=== PATIENT | male | born 1955 | race Caucasian/White ===

== ENCOUNTER → 2019-01-17 08:39 | Outpatient (POV) | payer OTHER, SELFPAY | PROVIDERS: Visit Provider Dermatology | DX: Z00.00 Encounter for general adult medical examination without abnormal findings (principal) ==

== ENCOUNTER 2019-12-23 18:47 | Inpatient (IN) ==
--- NOTE | 2019-12-23 19:37 | Emergency Department Note ---
[facility] [place] Clinical Impression: Abdominal pain Qualifiers: Abdominal location: epigastric Qualified Code(s): R10.13 - Epigastric pain Disposition: Still a Patient Condition on Discharge: Good Referrals: Darrell Cotton MD [Primary Care Provider] - Time of Disposition: 19:43 Medical Decision Making - All Inquiry Pt receiving controlled substance: No Vital Signs: 12/23/19 19:29 Temperature 98.3 F Temperature Source Oral Pulse Rate [Right Brachial] 111 H Respiratory Rate 20 Blood Pressure [Right Arm] 112/80 Blood Pressure Mean [Right Arm] 90 Blood Pressure Source [Right Arm] Automatic Cuff Blood Pressure Position [Right Arm] Sitting 02 Sat by Pulse Oximetry 96 Oxygen Delivery Method Room Air [facility] [place] - General Chief complaint: [facility] Stated complaint: Vomiting, stomach pain, muscle spasms Time Seen by Provider: 12/23/19 19:39 Mode of Arrival: Ambulatory Source of Information: Patient Limitations: No Limitations Description of Symptoms (Recalled from Triage Doc. by RN): PATIENT C/O VOMITING AND MIDDLE ABDOMINAL PAIN SINCE APPROX 0500 THIS AM. THE ABDOMINAL PAIN IS WORSE WHEN HE LIES DOWN. PATIENT STATES THAT HE CANNOT HOLD EVEN WATER DOWN. DENIES DIARRHEA, STATING HE HAD A HARD BOWEL MOVEMENT THIS AM HEENT Symptoms (Recalled from RN notes): No Resp Symptoms (Recalled from RN notes): No Skin Symptoms (Recalled from RN notes): No MS Symptoms (Recalled from RN notes): No Functional Status (Recalled from RN notes): WNL - History of Present Illness Provider Complaint: 64 yr old male presents for abd pain,nausea and vomiting since 5 am. Pt states he has been vomiting up dark brown stuff and some with food she ate last night. Pt states when he belches it taste and smells like stool. - Related Data Home Medications Medication Instructions Recorded Confirmed Atorvastatin Calcium [Atorvastatin 20 mg PO HS 12/23/19 12/23/19 20mg Tab] lisinopriL [Lisinopril 40mg Tablet] 40 mg PO DAILY 12/23/19 12/23/19 Allergies Allergy/AdvReac Type Severity Reaction Status Date / Time No Known Allergies Allergy Verified 12/23/19 19:35 - Worker's Comp Is this a Worker's Comp case?: No [facility] History - Hepatitis A Screen Drug use history?: No High risk sexual behaviors?: No History of sexually transmitted infection?: No Currently employed?: No Childcare worker?: No Do you have indoor plumbing?: Yes Do you have electricity?: Yes Attestation statement:: This patient has been screened for Hepatitis A risk factors. I have reviewed the patient's past medical history: Yes - Social History Alcohol Intake: never Occupational Status: other ROS Obtained: Yes Systems reviewed as appropriate & no additional complaints - Constitutional Constitutional: Reports system reviewed and no additional complaints, except as docu, Denies chills, Denies fever(s) - Eyes Eyes: Reports system reviewed and no additional complaints, except as docu, Denies change in vision - ENT Ears, Nose, Mouth, and Throat: Reports system reviewed and no additional complaints, except as docu, Denies nasal discharge - Cardiovascular Cardiovascular: Reports system reviewed and no additional complaints, except as docu, Denies chest pain at rest - Respiratory Respiratory: Yes system reviewed and no additional complaints, except as docu, No chest congestion - Gastrointestinal Gastrointestingal: Reports: system reviewed and no additional complaints, except as docu, abdominal pain, belching, nausea, vomiting - Musculoskeletal Musculoskeletal: Reports system reviewed and no additional complaints, except as docu, Denies decreased muscle mass - Integumentary/Breasts Skin/Breast: Reports system reviewed and no additional complaints, except as docu, Denies rash - Neurologic Neurologic: Reports system reviewed and no additional complaints, except as docu, Denies focal weakness - Endocrine Endocrine: Reports system reviewed and no additional complaints, except as docu, Denies cold intolerance - Hematologic/Lymphatic Henatologic/Lymphatic: Reports system reviewed and no additional complaints, except as docu, Denies lymphadenopathy - Allergic/Immunologic Allergic/Immunologic: Reports system reviewed and no additional complaints, except as docu, Denies itchy eyes Physical Exam - General General appearance: alert, in no apparent distress - Head Head exam: atraumatic, normocephalic, normal inspection - Eye Eye exam: Present: normal appearance, PERRL - ENT ENT exam: Present: normal exam, normal oropharynx, mucous membranes moist, TM's normal bilaterally, normal external ear exam - Neck Neck exam: Present: normal inspection, full ROM, trachea midline. Absent: meningismus, lymphadenopathy - Chest Chest inspection: Present: normal inspection, symmetric chest wall rise. Absent: tenderness - Respiratory Respiratory exam: Present: normal lung sounds bilaterally. Absent: respiratory distress - Cardiovascular Cardiovascular exam: Present: regular rate, normal rhythm. Absent: JVD - Abdominal Exam Abdominal exam: Present: tenderness, hyperactive bowel sounds Abdominal tenderness: Present: epigastrium - Extremities Exam Extremities exam: Present: normal inspection, full ROM, normal capillary refill. Absent: calf tenderness - Back Exam Back exam: Present: normal inspection. Absent: tenderness - Neurological Exam Neurological exam: Present: alert, oriented X3 - Psychiatric Psychiatric exam: Present: normal affect, normal mood - Skin Skin exam: Present: warm, dry, intact, normal color - Lymphatic Lymphatic Findings: no adenopathy
[2019-12-23 20:32] LABS: Microscopic, Urine URINE MICROSCOPIC (MICROSCOPIC)
[2019-12-23 20:36] LABS: Basophils % 0.1 % (0.1-2.0); Eosinophils % 0.3 % (0.1-12.0); Hematocrit 49.4 % (42.0-52.0); Hemoglobin 16.2 g/dL (14.1-18.0); Lymphocytes # 0.8 K/mm3 (0.7-4.5); Lymphocytes % 5.6 % (10-50); Mean Corpuscular HGB Conc 32.8 g/dL (31.8-35.4); Mean Corpuscular Volume 97.7 fl (80-94); Mean Platelet Volume 8.4 fl (7.4-10.4); Monocytes # 0.5 K/mm3 (0.1-1.0); Monocytes % 3.1 % (1.7-9.3); Neutrophils # 13.6 K/mm3 (1.8-7.8); Neutrophils % 90.9 % (37.0-80.0); Platelet Count 270 K/mm3 (142-424); Red Blood Count 5.05 M/mm3 (4.60-6.20); Red Cell Distribution Width 12.1 % (11.5-17.5)
[2019-12-23 21:10] LABS: Alanine Aminotransferase 62 U/L (12-78); Albumin Level 4.4 gm/dL (3.4-5.0); Albumin/Globulin Ratio 1.2 (1.1-1.8); Alkaline Phosphatase 60 U/L (46-116); Amylase 62 U/L (25-115); Aspartate Amino Transferase 42 U/L (15-37); Blood Urea Nitrogen 28 mg/dL (7-18); Calcium 9.4 mg/dL (8.5-10.1); Carbon Dioxide 24 mmol/L (21.0-32.0); Chloride 101 mmol/L (98-107); Globulin 3.6 gm/dl (1.3-3.2); Glucose 174 mg/dL (74-106); Sodium 138 mmol/L (136-145)
[2019-12-23 21:13] LABS: C-Reactive Protein < 0.2 mg/dL (0.0-0.9)
[2019-12-23 21:18] LABS: Appearance,Urine SL CLOUDY (Clear); Bilirubin,Urine Negative (Negative); Blood, Urine Negative (Negative); Color,Urine YELLOW (Yellow); Glucose,Urine (UA) Negative (Negative); Ketones,Urine 1+ (Negative); Leukocyte Esterase,Urine Negative (Negative); PH,Urine 7.5 (5.0-8.5); Protein,Urine Negative (Negative); Urobilinogen,Urine 0.2 EU/dl (0.2)
[2019-12-23 21:21] LABS: Amorphous Sediment,Urine 4+ /lpf
[2019-12-23 21:30] LABS: Erythrocyte Sedimentation Rate 1 mm/hr (0-20)
[2019-12-23 21:40] LABS: Eosinophils % 1 % (0-3); Lymphocytes % 4 % (10-50); Monocytes % 2 % (2-9); Neutrophils % 85 % (42-76); RBC Morphology Normal; Total Cells Counted 100
[2019-12-24 07:09] LABS: Basophils % 0.3 % (0.1-2.0); Eosinophils # 0.1 K/mm3 (0.0-0.4); Eosinophils % 0.7 % (0.1-12.0); Hematocrit 43.5 % (42.0-52.0); Lymphocytes # 1.8 K/mm3 (0.7-4.5); Lymphocytes % 19.7 % (10-50); Mean Corpuscular HGB Conc 31.7 g/dL (31.8-35.4); Mean Corpuscular Volume 99.1 fl (80-94); Mean Platelet Volume 8.2 fl (7.4-10.4); Monocytes # 0.6 K/mm3 (0.1-1.0); Monocytes % 6.6 % (1.7-9.3); Neutrophils # 6.5 K/mm3 (1.8-7.8); Neutrophils % 72.7 % (37.0-80.0); Platelet Count 227 K/mm3 (142-424); Red Blood Count 4.39 M/mm3 (4.60-6.20); Red Cell Distribution Width 12.1 % (11.5-17.5); White Blood Count 8.9 K/mm3 (4.8-10.8)
[2019-12-24 07:12] LABS: Hemoglobin 13.8 g/dL (14.1-18.0)
[2019-12-24 07:20] LABS: Anion Gap 12.4 mEq/L (5-15)
[2019-12-24 07:21] LABS: Calcium 8.3 mg/dL (8.5-10.1)
--- NOTE | 2019-12-24 08:23 | Pharmacy Consult Notes ---
[facility] Pharmacy VTE Monitoring - Patient Demographics Admission date: 12/23/19 Report Date: 12/24/19 Time: 08:23 Allergies/Adverse Reactions: Patient Allergies No Known Allergies Allergy (Verified 12/23/19 19:35) Height: 1.83 m Weight: 100.726 kg Patient Problems: Current Active Problems Abdominal pain (Acute) - VTE Risk Labs: VTE Related Lab Results Hgb 13.8 g/dL (14.1-18.0) L D 12/24/19 06:13 Hct 43.5 % (42.0-52.0) 12/24/19 06:13 Plt Count 227 K/mm3 (142-424) 12/24/19 06:13 BUN 26 mg/dL (7-18) H 12/24/19 06:13 Creatinine 1.17 mg/dL (0.70-1.30) 12/24/19 06:13 Estimated Creat Clear 90 mL/min (50-200) 12/24/19 06:13 VTE Score: 1 - Prophylaxis VTE Prophylaxis Ordered?: Yes Types of VTE Prophylaxis: TEDS Knee High Location of Applied Device: Bilateral Lower Extremeties - VTE Diagnosis Confirmed Treatment or plan recommended: Continue Current Treatment
--- NOTE | 2019-12-24 08:47 | Consult Report ---
*Admission Date: 12/23/19 *Reason for consult:: Abdominal pain. Small bowel obstruction. *History of present illness: Mr. Ordonez is a 64-year-old male that presented to [facility] with persistent nausea and vomiting. Onset and persistence for approximately 24 hours prior to arrival. Reports a relatively large meal past 36 hours. No fever or chills. No diarrhea No hematochezia or melena. No prior episodes and no sick contacts. Decision to proceed to Urgent Treatment Center based on per sistence of nausea and inability to complete oral intake. Mr. Ordonez reports an intentional 70+ pound weight loss over the past year. CT imaging completed. Findings suspicious for partial small bowel obstruction. Patient admitted. Surgical consultation requested. Mildly elevated WBC noted. Review of Systems - Review of Systems Review of systems:: pertinent systems reviewed and negative unless documented below - Constitutional Reports weight loss Comments: Weight loss intentional. - *Neurologic Denies localized weakness [facility] History Medical History: Reports:: Hyperlipidemia, Hypertension Denies:: Cancer, Diabetes Mellitus Type 1, Diabetes Mellitus Type 2, MRSA *Have you ever received a pneumonia vaccine?: Yes *Have you received a flu vaccine this season?: Yes Other Surgeries: Yes: EGD Amputation: No Fractures: No - *Social History Educational Level: Completed High School Smoking Status: Former smoker Tobacco Type: cigarettes # Packs/Day (cigarettes): 2 Alcohol Intake: never *Occupational Status:: retired *Travel in the last 8 weeks: None Family Hx:: Diabetes, Heart Attack, Hyperlipidemia, Hypertension, Stroke, Tuberculosis Meds Home Medications Medication Instructions Recorded Confirmed Type Atorvastatin Calcium [Atorvastatin 20 mg PO HS 12/23/19 12/24/19 History 20mg Tab] lisinopriL [Lisinopril 40mg Tablet] 40 mg PO DAILY 12/23/19 12/24/19 History Aspirin [Aspirin 81mg EC Tab] 81 mg PO DAILY 12/24/19 12/24/19 History Allergies Allergy/AdvReac Type Severity Reaction Status Date / Time No Known Allergies Allergy Verified 12/23/19 19:35 Exam Vital signs and Labs for Last 24 Hours: Temp Pulse Resp BP Pulse Ox 98.5 F 78 16 123/61 96 12/24/19 07:54 12/24/19 07:54 12/24/19 07:54 12/24/19 07:54 12/24/19 07:54 Laboratory Results - last 24 hr 12/23/19 20:22: WBC 15.0 H, RBC 5.05, Hgb 16.2, Hct 49.4, MCV 97.7 H, MCH 32.0 H , MCHC 32.8, RDW 12.1, Plt Count 270, MPV 8.4, Neut % (Auto) 90.9 H, Lymph % (Auto) 5.6 L, Bradley % (Auto) 3.1, Eos % (Auto) 0.3, Baso % (Auto) 0.1, Neut # (Auto) 13.6 H, Lymph # (Auto) 0.8, Bradley # (Auto) 0.5, Eos # (Auto) 0.0, Baso # (Auto) 0.0, Total Counted 100, Neutrophils % (Manual) 85 H, Band Neutrophils % 8.0, Lymphocytes % (Manual) 4 L, Monocytes % (Manual) 2, Eosinophils % (Manual) 1, Platelet Estimate Normal, RBC Morphology Normal, ESR 1 12/23/19 20:22: Sodium 138, Potassium 4.0, Chloride 101, Carbon Dioxide 24, Anion Gap 17.0 H, BUN 28 H, Creatinine 1.46 H, Estimated Creat Clear 71, Estimated GFR 48 L, Est GFR ( Amer) 59, Glucose 174 H, Calcium 9.4, Total Bilirubin 1.0, AST 42 H, ALT 62, Alkaline Phosphatase 60, C-Reactive Protein < 0.2, Total Protein 8.0, Albumin 4.4, Globulin 3.6 H, Albumin/Globulin Ratio 1.2, Amylase 62, Lipase 162 12/23/19 20:25: Urine Color Yellow, Urine Appearance Sl cloudy, Urine pH 7.5, Ur Specific [place] 1.020, Urine Protein Negative, Urine Glucose (UA) Negative, Urine Ketones 1+, Urine Blood Negative, Urine Nitrate Negative, Urine Bilirubin Negative, Urine Urobilinogen 0.2, Ur Leukocyte Esterase Negative, Amorphous Sediment 4+ 12/24/19 06:13: WBC 8.9 D, RBC 4.39 L, Hgb 13.8 L D, Hct 43.5, MCV 99.1 H, MCH 31.5 H, MCHC 31.7 L, RDW 12.1, Plt Count 227, MPV 8.2, Neut % (Auto) 72.7, Lymph % (Auto) 19.7, Bradley % (Auto) 6.6, Eos % (Auto) 0.7, Baso % (Auto) 0.3, Neut # (Auto) 6.5, Lymph # (Auto) 1.8, Bradley # (Auto) 0.6, Eos # (Auto) 0.1, Baso # (Auto) 0.0 12/24/19 06:13: Sodium 141, Potassium 4.4, Chloride 106, Carbon Dioxide 27, Anion Gap 12.4, BUN 26 H, Creatinine 1.17, Estimated Creat Clear 90, Estimated GFR 63, Est GFR ( Amer) 76 D, Glucose 101 D, Calcium 8.3 L D I & O for Last 24 hours: Intake & Output 12/21/19 12/22/19 12/23/19 12/24/19 11:59 11:59 11:59 11:59 Intake Total 541 / 541 Output Total 75 / 75 Balance 466 / 466 Weight 100.726 kg - Constitutional Comments: No distress. Nontoxic. - *Routine Respiratory Exam Comments: Chest clear bilaterally. - *Routine Cardiovascular Exam Comments: Regular rate and rhythm. - *Routine Abdominal Exam Comments: Soft. Nontender. Nondistended. Results - Labs 12/24/19 06:13 12/24/19 06:13 Laboratory Results - last 24 hr 12/23/19 20:22: WBC 15.0 H, RBC 5.05, Hgb 16.2, Hct 49.4, MCV 97.7 H, MCH 32.0 H , MCHC 32.8, RDW 12.1, Plt Count 270, MPV 8.4, Neut % (Auto) 90.9 H, Lymph % (Auto) 5.6 L, Bradley % (Auto) 3.1, Eos % (Auto) 0.3, Baso % (Auto) 0.1, Neut # (Auto) 13.6 H, Lymph # (Auto) 0.8, Bradley # (Auto) 0.5, Eos # (Auto) 0.0, Baso # (Auto) 0.0, Total Counted 100, Neutrophils % (Manual) 85 H, Band Neutrophils % 8.0, Lymphocytes % (Manual) 4 L, Monocytes % (Manual) 2, Eosinophils % (Manual) 1, Platelet Estimate Normal, RBC Morphology Normal, ESR 1 12/23/19 20:22: Sodium 138, Potassium 4.0, Chloride 101, Carbon Dioxide 24, Anion Gap 17.0 H, BUN 28 H, Creatinine 1.46 H, Estimated Creat Clear 71, Estimated GFR 48 L, Est GFR ( Amer) 59, Glucose 174 H, Calcium 9.4, Total Bilirubin 1.0, AST 42 H, ALT 62, Alkaline Phosphatase 60, C-Reactive Protein < 0.2, Total Protein 8.0, Albumin 4.4, Globulin 3.6 H, Albumin/Globulin Ratio 1.2, Amylase 62, Lipase 162 12/23/19 20:25: Urine Color Yellow, Urine Appearance Sl cloudy, Urine pH 7.5, Ur Specific [place] 1.020, Urine Protein Negative, Urine Glucose (UA) Negative, Urine Ketones 1+, Urine Blood Negative, Urine Nitrate Negative, Urine Bilirubin Negative, Urine Urobilinogen 0.2, Ur Leukocyte Esterase Negative, Amorphous Sediment 4+ 12/24/19 06:13: WBC 8.9 D, RBC 4.39 L, Hgb 13.8 L D, Hct 43.5, MCV 99.1 H, MCH 31.5 H, MCHC 31.7 L, RDW 12.1, Plt Count 227, MPV 8.2, Neut % (Auto) 72.7, Lymph % (Auto) 19.7, Bradley % (Auto) 6.6, Eos % (Auto) 0.7, Baso % (Auto) 0.3, Neut # (Auto) 6.5, Lymph # (Auto) 1.8, Bradley # (Auto) 0.6, Eos # (Auto) 0.1, Baso # (Auto) 0.0 12/24/19 06:13: Sodium 141, Potassium 4.4, Chloride 106, Carbon Dioxide 27, Anion Gap 12.4, BUN 26 H, Creatinine 1.17, Estimated Creat Clear 90, Estimated GFR 63, Est GFR ( Amer) 76 D, Glucose 101 D, Calcium 8.3 L D - Imaging CT scan - abdomen: image reviewed CT scan - chest: image reviewed Assessment and Plan - Assessment and plan all Dx Assessment and Plan for all problems:: 1. Partial small bowel obstruction. Presents with nausea and emesis. Mildly elevated WBC. Admitted. NG tube placed. Minimal decompression needed. Symptoms have essentially resolved. NG tube removed today. Clinical abdominal examination without abnormality. Patient has not had prior abdominal operation. Current event likely attributed to viral illness. At this time we will begin to initiate diet and advance slowly to full liquids today. No operative intervention indicated.
--- NOTE | 2019-12-24 08:58 | History & Physical Report ---
*Admission Date: 12/23/19 *Chief complaint: Vomiting, abdominal pain *History of present illness: Mr. Ordonez is a 64-year-old male that presented to [facility] with persistent nausea and vomiting. Onset and persistence for approximately 24 hours prior to arrival. Reports a relatively large meal past 36 hours. No fever or chills. No diarrhea No hematochezia or melena. No prior episodes and no sick contacts. Decision to proceed to Urgent Treatment Center based on persistence of nausea and inability to complete oral intake. Mr. Ordonez reports an intentional 70+ pound weight loss over the past year. CT imaging completed. Findings suspicious for partial small bowel obstruction. Patient admitted. Surgical consultation requested. Mildly elevated WBC noted. [facility] History I have reviewed the patient's past medical history: Yes Medical History: Reports:: Hyperlipidemia, Hypertension Denies:: Cancer, Diabetes Mellitus Type 1, Diabetes Mellitus Type 2, MRSA *Have you ever received a pneumonia vaccine?: Yes *Have you received a flu vaccine this season?: Yes Other Surgeries: Yes: EGD Amputation: No Fractures: No - *Social History Educational Level: Completed High School Smoking Status: Former smoker Tobacco Type: cigarettes # Packs/Day (cigarettes): 2 Alcohol Intake: never *Occupational Status:: retired *Travel in the last 8 weeks: None Family Hx:: Diabetes, Heart Attack, Hyperlipidemia, Hypertension, Stroke, Tuberculosis Review of Systems - Review of Systems Review of systems:: pertinent systems reviewed and negative unless documented below - *Neurologic Denies localized weakness Meds Home Medications Medication Instructions Recorded Confirmed Type Atorvastatin Calcium [Atorvastatin 20 mg PO HS 12/23/19 12/24/19 History 20mg Tab] lisinopriL [Lisinopril 40mg Tablet] 40 mg PO DAILY 12/23/19 12/24/19 History Aspirin [Aspirin 81mg EC Tab] 81 mg PO DAILY 12/24/19 12/24/19 History Allergies Allergy/AdvReac Type Severity Reaction Status Date / Time No Known Allergies Allergy Verified 12/23/19 19:35 Exam Vital signs and Labs for Last 24 Hours: Temp Pulse Resp BP Pulse Ox 98.5 F 78 16 123/61 96 12/24/19 07:54 12/24/19 07:54 12/24/19 07:54 12/24/19 07:54 12/24/19 07:54 Laboratory Results - last 24 hr 12/23/19 20:22: WBC 15.0 H, RBC 5.05, Hgb 16.2, Hct 49.4, MCV 97.7 H, MCH 32.0 H , MCHC 32.8, RDW 12.1, Plt Count 270, MPV 8.4, Neut % (Auto) 90.9 H, Lymph % (Auto) 5.6 L, [place] % (Auto) 3.1, Eos % (Auto) 0.3, Baso % (Auto) 0.1, Neut # (Auto) 13.6 H, Lymph # (Auto) 0.8, [place] # (Auto) 0.5, Eos # (Auto) 0.0, Baso # (Auto) 0.0, Total Counted 100, Neutrophils % (Manual) 85 H, Band Neutrophils % 8.0, Lymphocytes % (Manual) 4 L, Monocytes % (Manual) 2, Eosinophils % (Manual) 1, Platelet Estimate Normal, RBC Morphology Normal, ESR 1 12/23/19 20:22: Sodium 138, Potassium 4.0, Chloride 101, Carbon Dioxide 24, Anion Gap 17.0 H, BUN 28 H, Creatinine 1.46 H, Estimated Creat Clear 71, Estima marlo GFR 48 L, Est GFR ( Amer) 59, Glucose 174 H, Calcium 9.4, Total Bilirubin 1.0, AST 42 H, ALT 62, Alkaline Phosphatase 60, C-Reactive Protein < 0.2, Total Protein 8.0, Albumin 4.4, Globulin 3.6 H, Albumin/Globulin Ratio 1.2, Amylase 62, Lipase 162 12/23/19 20:25: Urine Color Yellow, Urine Appearance Sl cloudy, Urine pH 7.5, Ur Specific [place] 1.020, Urine Protein Negative, Urine Glucose (UA) Negative, Urine Ketones 1+, Urine Blood Negative, Urine Nitrate Negative, Urine Bilirubin Negative, Urine Urobilinogen 0.2, Ur Leukocyte Esterase Negative, Amorphous Sediment 4+ 12/24/19 06:13: WBC 8.9 D, RBC 4.39 L, Hgb 13.8 L D, Hct 43.5, MCV 99.1 H, MCH 31.5 H, MCHC 31.7 L, RDW 12.1, Plt Count 227, MPV 8.2, Neut % (Auto) 72.7, Lymph % (Auto) 19.7, [place] % (Auto) 6.6, Eos % (Auto) 0.7, Baso % (Auto) 0.3, Neut # (Auto) 6.5, Lymph # (Auto) 1.8, [place] # (Auto) 0.6, Eos # (Auto) 0.1, Baso # (Auto) 0.0 12/24/19 06:13: Sodium 141, Potassium 4.4, Chloride 106, Carbon Dioxide 27, Anion Gap 12.4, BUN 26 H, Creatinine 1.17, Estimated Creat Clear 90, Estimated GFR 63, Est GFR ( Amer) 76 D, Glucose 101 D, Calcium 8.3 L D I & O for Last 24 hours: Intake & Output 12/21/19 12/22/19 12/23/19 12/24/19 11:59 11:59 11:59 11:59 Intake Total 541 / 541 Output Total 75 / 75 Balance 466 / 466 Weight 222 lb 1 oz Narrative: Patient is pleasant, alert, states that he feels much better since admission and wants his tube out. He reports 2 episodes of fairly significant flatus production this morning. ENT exam clear, NG tube in right nostril. Lungs are clear. Heart rate regular. Abdomen soft and nontender, no edema or clubbing. Neurologic exam intact, no rash. Oropharynx otherwise clear. Assessment and Plan (1) Small bowel obstruction Current visit: Yes Status: Acute Category: Medical Code(s): K56.609 - Unspecified intestinal obstruction, unspecified as to partial versus complete obstruction Unclear etiology of obstruction, possibly viral, good symptomatic improvement. Labs improved. Surgical consultation reviewed and appreciated. DC NG tube. Advance diet. Probable discharge tomorrow unless further obstruction occurs.
--- NOTE | 2019-12-25 07:22 | Progress Note ---
Internal Medicine - PN: Subj *Date: 12/25/19 *Time: 07:22 Interval history: Patient has no complaints this morning. He tolerated full liquid diet. He admits to flatus but no bowel movement. He denies nausea, vomiting, abdominal distention with his diet Exam Vital signs and Labs for Last 24 Hours: Temp Pulse Resp BP Pulse Ox 97.7 F 58 L 18 120/58 L 96 12/25/19 04:00 12/25/19 04:00 12/25/19 04:00 12/25/19 04:00 12/25/19 04:00 I & O for Last 24 hours: Intake & Output 12/22/19 12/23/19 12/24/19 12/25/19 11:59 11:59 11:59 11:59 Intake Total 541 / 541 3150 / 3150 Output Total 75 / 75 3475 / 3475 Balance 466 / 466 -325 / -325 Weight 222 lb 1 oz 224 lb 9 oz Narrative: He looks well. Abdomen is soft, nontender, nondistended with active bowel sounds Assessment and Plan (1) Small bowel obstruction Current visit: Yes Status: Acute Category: Medical Code(s): K56.609 - Unspecified intestinal obstruction, unspecified as to partial versus complete obstruction - Assessment and plan all Dx Assessment and Plan for all problems:: Advance to regular diet this morning and if that is tolerated patient will be discharged home
--- NOTE | 2019-12-25 07:24 | Discharge Summary ---
General - General Admission date:: 12/24/19 Discharge date: 12/25/19 HPI HPI: Mr. Ordonez is a 64-year-old male that presented to [facility] with persistent nausea and vomiting. Onset and persistence for approximately 24 hours prior to arrival. Reports a relatively large meal past 36 hours. No fever or chills. No diarrhea No hematochezia or melena. No prior episodes and no sick contacts. Decision to proceed to Urgent Treatment Center based on persistence of nausea and inability to complete oral intake. Mr. Ordonez reports an intentional 70+ pound weight loss over the past year. CT imaging completed. Findings suspicious for partial small bowel obstruction. Patient admitted. Surgical consultation requested. Mildly elevated WBC noted. Hospital Course Hospital Course: Patient was admitted with NG tube. He responded well to conservative treatment and NG tube was able to be removed within 24 hours. Diet was advanced first to liquids and then full liquids which patient tolerated without difficulties. Patient continued to improve and on the morning of December 25 diet was advanced to regular diet. Once patient was tolerating regular diet he was discharged home. Patient will follow-up in the office later this week Objective Vital signs: Temp Pulse Resp BP Pulse Ox 97.7 F 58 L 18 120/58 L 96 12/25/19 04:00 12/25/19 04:00 12/25/19 04:00 12/25/19 04:00 12/25/19 04:00 no acute distress - *Routine Abdominal Exam Present: soft, normoactive bowel sounds. Absent: tenderness, distended, rebound DS: Diagnosis - Discharge Diagnosis (1) Small bowel obstruction Status: Resolved Discharge Plan - Patient Discharge Instructions ACTIVITY: Continue current activity DIET: continue same diet Patient Instructions: Acute Abdominal Pain, DI for Abdominal Pain-Adult - Follow up Plan Follow up with: Darrell Cotton MD [Primary Care Provider] - 12/29/19 Disposition: Home, Self-[facility] Medications: Home Medications Medication Instructions Recorded Confirmed Type Atorvastatin Calcium [Atorvastatin 20 mg PO HS 12/23/19 12/24/19 History 20mg Tab] lisinopriL [Lisinopril 40mg Tablet] 40 mg PO DAILY 12/23/19 12/24/19 History Aspirin [Aspirin 81mg EC Tab] 81 mg PO DAILY 12/24/19 12/24/19 History Prescriptions/Medication Reconciliation: Continued Atorvastatin Calcium [Atorvastatin 20mg Tab] 20 mg PO HS Aspirin [Aspirin 81mg EC Tab] 81 mg PO DAILY lisinopriL [Lisinopril 40mg Tablet] 40 mg PO DAILY - Problem Reconciliation Problems Reviewed?: Yes
== END 2019-12-25 09:25 | disposition home or self-care (01) | DRG 390 ==
LOC: ER 18:47 → UTC 18:47 → 2ND 23:26
PROVIDERS: ADMIT Emergency Medicine; ATTEND Family Medicine
CPT/HCPCS: 74177; 80048; 80053; 81001; 82150; 83690; 85007; 85025; 85651; 86140; 87040; 96365; 96375; 99285; J2405; Q9967

== ENCOUNTER → 2020-03-21 12:31 | Outpatient (CLI) | payer MEDICARE, OTHER, SELFPAY ==
[2020-03-21 12:38] LABS: Adenovirus F 40/41, stool Not Detected (NotDetected); Astrovirus Not Detected (NotDetected); Campylobacter Not Detected (NotDetected); Clostridium Difficile A/B, PCR Not Detected (NotDetected); Cryptosporidium Not Detected (NotDetected); Cyclospora Cayetanesis Not Detected (NotDetected); Entamoeba histolytica Not Detected (NotDetected); Enteroaggregative E coli Not Detected (NotDetected); Enteropathogenic E coli Not Detected (NotDetected); Enterotoxigenic E coli Not Detected (NotDetected); Giardia lamblia Not Detected (NotDetected); Norovirus Not Detected (NotDetected); Plesimonas Shigalloides, PCR Not Detected (NotDetected); Rotavirus A Not Detected (NotDetected); Salmonella, PCR Not Detected (NotDetected); Sapovirus Not Detected (NotDetected); Shiga-like toxin E coli Not Detected (NotDetected); Shigella Enterovasive E coli Not Detected (NotDetected); Vibrio Cholerae Not Detected (NotDetected); Vibrio, PCR Not Detected (NotDetected); Yersinia Entercolitica, PCR Not Detected (NotDetected)
== END ==
PROVIDERS: Visit Provider Family Medicine
DX: R19.7 Diarrhea, unspecified (principal)
CPT/HCPCS: 87506

== ENCOUNTER 2020-03-24 11:30 | Emergency (ER) | payer MEDICARE, OTHER, SELFPAY ==
[2020-03-24 11:32] VITALS: BP 134/69; PULSE 95; RESP 20; TEMP 36.3; O2SAT 96; BMI 31.1
--- NOTE | 2020-03-24 11:47 | CT_ITS ---
PROCEDURE: CT ABDOMEN PELVIS W CON CLINICAL INDICATION: abd pain Generalized abdominal pain with diarrhea and bloody stool COMPARISON: CT ABDOMEN PELVIS W CON from 12/23/2019 TECHNIQUE: IV Contrast: 75ML OPTIRAY 350 Oral Contrast none Axial images obtained with sagittal and coronal reformats. All CT scans at the facility use one or more dose reduction, viz: automated exposure control, ma/kV adjustment per patient size (including targeted exams where dose is matched to indication, i.e. head), or iterative reconstruction technique. FINDINGS: LOWER THORAX: Right hemidiaphragm is elevated with mild right basilar atelectasis. Coronary artery calcifications are present ABDOMEN & PELVIS: The liver, spleen, adrenal glands, the and pancreas have an unremarkable appearance. There is a 3 mm stone in the mid polar region of the right kidney. No hydronephrosis. No ureteral calculi. No evidence of appendicitis, intestinal obstruction, free air, or diverticulitis. There is diverticulosis of the sigmoid colon. There is mild colonic thickening of the transverse, descending, sigmoid colon, and rectal area. No evidence of appendicitis IMPRESSION: 1. Thickening of the transverse descending and sigmoid colon and rectosigmoid region. This may be due to nondistention or colitis. 2. Colonic diverticulosis. No definite evidence of diverticulitis. 3. Right nephrolithiasis. Dictated by: Jesus Ying MD 03/25/2020 09:25 Electronically signed by Jesus Ying MD in [place] 03/25/2020 09:25
[2020-03-24 12:05] LABS: Basophils # 0.2 K/mm3 (0-0.2); Basophils % 2.7 % (0.1-2.0); Eosinophils # 0.2 K/mm3 (0.0-0.4); Eosinophils % 3.1 % (0.1-12.0); Hematocrit 41.4 % (42.0-52.0); Hemoglobin 14.3 g/dL (14.1-18.0); Lymphocytes # 1.4 K/mm3 (0.7-4.5); Lymphocytes % 21.3 % (10-50); Mean Corpuscular HGB Conc 34.6 g/dL (31.8-35.4); Mean Corpuscular Volume 92.7 fl (80-94); Mean Platelet Volume 8.4 fl (7.4-10.4); Monocytes # 0.6 K/mm3 (0.1-1.0); Monocytes % 9.5 % (1.7-9.3); Neutrophils # 4.3 K/mm3 (1.8-7.8); Neutrophils % 63.4 % (37.0-80.0); Platelet Count 263 K/mm3 (142-424); Red Blood Count 4.47 M/mm3 (4.60-6.20); White Blood Count 6.8 K/mm3 (4.8-10.8)
[2020-03-24 12:09] LABS: Chloride 104 mmol/L (98-107); Potassium 4.3 mmoL/L (3.5-5.1); Sodium 134 mmol/L (136-145)
[2020-03-24 12:12] LABS: Alanine Aminotransferase 35 U/L (12-78); Albumin Level 3.7 g/dl (3.5-5.0); Albumin/Globulin Ratio 1.2 (1.1-1.8); Alkaline Phosphatase 44 U/L (38-126); Amylase 68 U/L (30-110); Anion Gap 11.3 mEq/L (5-15); Aspartate Amino Transferase 32 U/L (17-59); Bilirubin,Total 1.1 mg/dl (0.2-1.3); Blood Urea Nitrogen 20 mg/dl (9-20); Calcium 8.9 mg/dl (8.4-10.2); Carbon Dioxide 23 mmol/L (22.0-30.0); Creatinine Clearance Estimated 109 mL/min (50-200); Estimated Glomerular Filt Rate 85 ml/min (>60); GFR (African American) 102 ML/MIN (>60); Globulin 3.2 g/dL (1.3-3.2); Glucose 143 mg/dl (74-100); Lipase 75 U/L (23-300); Total Protein,Serum 6.9 g/dl (6.3-8.2)
--- NOTE | 2020-03-24 12:12 | HMH.EDGENADL ---
ED Disposition Clinical Impression: Gastroenteritis, Diverticulitis large intestine Disposition: Home, Self-Care Condition on Discharge: Good Instructions: DI for Diarrhea and Traveler's Diarrhea -- Adult, DI for Diarrhea and Traveler's Diarrhea -- Child, DI for Nausea -- Adult, DI for Nausea -- Child Prescriptions: Ciprofloxacin HCl [Cipro 500mg Tab] 500 mg PO BID 10 Days #20 tab Transmission Status: Pending to [facility] metroNIDAZOLE [Flagyl 500mg Tablet] 500 mg PO Q8H 10 Days #30 tab Transmission Status: Pending to [facility] Referrals: Darrell Cotton MD [Primary Care Provider] - - Critical Care Critical Care Time: No Attestation: On 03/24/20, the high probability of a clinically significant, sudden or life threatening deterioration of the following system(s) required my full and direct attention, intervention and personal management. The time I documented below is in addition to time spent performing reported procedures but includes the following listed in this critical care notation. Medical Decision Making - Medical Records Medical records reviewed: Yes: I reviewed the patient's medical records. - All Inquiry Pt receiving controlled substance: No Vital Signs: 03/24/20 11:32 Temperature 97.4 F L Temperature Source Oral Pulse Rate [Right] 95 H Respiratory Rate 20 Blood Pressure [Right Arm] 134/69 Blood Pressure Mean [Right Arm] 90 02 Sat by Pulse Oximetry 96 - Lab Data Lab results reviewed: Yes: I reviewed the patient's lab results. Lab Results 03/24/20 12:00: WBC 6.8, RBC 4.47 L, Hgb 14.3, Hct 41.4 L, MCV 92.7, MCH 32.0 H, MCHC 34.6, RDW 12.0, Plt Count 263, MPV 8.4, Neut % (Auto) 63.4, Lymph % (Auto) 21.3, Mills % (Auto) 9.5 H, Eos % (Auto) 3.1, Baso % (Auto) 2.7 H, Neut # (Auto) 4.3, Lymph # (Auto) 1.4, Mills # (Auto) 0.6, Eos # (Auto) 0.2, Baso # (Auto) 0.2 03/24/20 12:00: Sodium 134 L, Potassium 4.3, Chloride 104, Carbon Dioxide 23, Anion Gap 11.3, BUN 20, Creatinine 0.90, Estimated Creat Clear 109, Estimated GFR 85, Est GFR ( Amer) 102, Glucose 143 H, Calcium 8.9, Total Bilirubin 1.1, AST 32, ALT 35, Alkaline Phosphatase 44, Total Protein 6.9, Albumin 3.7, Globulin 3.2, Albumin/Globulin Ratio 1.2, Amylase 68, Lipase 75 Result diagrams: 03/24/20 12:00 03/24/20 12:00 Orders (Tests/Meds): ED MEDICATIONS Discontinued Medications Generic Name Dose Route Start Last Admin Trade Name Freq PRN Reason Stop Dose Admin Sodium Chloride 1,000 mls @ 999 mls/hr 03/24/20 12:00 03/24/20 12:02 Sod Chlor 0.9% 1000ml Bag IV 03/24/20 13:00 999 mls/hr .Q1H1M DAVID Administration Ioversol 75 ml 03/24/20 12:47 03/24/20 12:49 Rad-Optiray 350 100ml Vial IV 03/24/20 12:48 75 ml ONCE ONE Administration Protocol Ondansetron HCl 4 mg 03/24/20 11:48 03/24/20 12:03 Zofran 4mg/2ml Vial IV 03/24/20 11:49 4 mg ONCE ONE Administration Sodium Chloride 10 ml 03/24/20 12:47 03/24/20 12:49 Rad-Saline Flush 10ml Syringe IV 03/24/20 12:48 10 ml ONCE ONE Administration ORDERS Category Date Time Status CT abdomen pelvis w con Stat Cat Scan 03/24/20 11:47 Taken Occult Blood,Stool Stat Lab 03/24/20 11:47 Ordered Urinalysis and Microscopic Stat Lab 03/24/20 11:47 Ordered - CT Data CT Scan: Abdomen, Pelvis Time Received: 16:[address] Reviewed: Yes: I have reviewed the patient's CT results Preliminary Findings: Abnormal (Patient has mild inflammation about the diverticula so mild case of diverticulitis) General Adult HPI - General Chief complaint: Nausea/Vomiting/Diarrhea Stated complaint: diarrhea X6days,nausea,rectal bleeding Time Seen by Provider: 03/24/20 12:12 Mode of Arrival: Ambulatory Source of Information: Patient Limitations: No Limitations Description of Symptoms (Recalled from ER Triage Doc. by RN): C/O diarrhea x6 days with bloody stool that began this morning. Denies cough, fever soa. - History of Presen
[2020-03-24 13:54] VITALS: BP 123/65; PULSE 85; RESP 20; TEMP 36.8; O2SAT 98
== END 2020-03-24 13:55 | disposition home or self-care (01) ==
PROVIDERS: Emergency Provider Family Medicine; PCP Family Medicine
DX: K52.9 Noninfective gastroenteritis and colitis, unspecified (principal); K57.32 Diverticulitis of large intestine without perforation or abscess without bleeding; Z87.891 Personal history of nicotine dependence
CPT/HCPCS: 74177; 80053; 82150; 83690; 85025; 96365; 96375; 99283; J2405; Q9967

== ENCOUNTER → 2021-02-25 13:49 | Outpatient (CLI) | payer MEDICARE, OTHER, SELFPAY | PROVIDERS: PCP Family Medicine; Visit Provider Family Medicine | DX: G47.33 Obstructive sleep apnea (adult) (pediatric) (principal); I10 Essential (primary) hypertension; E66.9 Obesity, unspecified | CPT/HCPCS: G0399 ==

== ENCOUNTER 2021-02-28 15:14 | Emergency (ER) | payer MEDICARE, OTHER, SELFPAY ==
[2021-02-28 15:53] VITALS: BP 130/82; PULSE 72; RESP 14; TEMP 37; O2SAT 95; BMI 33.9
--- NOTE | 2021-02-28 15:54 | XR_ITS ---
PROCEDURE: XR CHEST 2V CLINICAL HISTORY: INJURY Posttraumatic pain COMPARISON: CR XR CHEST PORTABLE from 12/24/2019 CR XR RIBS LT 2V from 02/28/2021 FINDINGS: The cardiomediastinal silhouette and pulmonary vascularity are within normal limits. Right hemidiaphragm is elevated with right basilar atelectasis. There are nondisplaced fractures of the left 6th and 7th ribs as seen on the rib detail study. No evidence of pneumothorax. [place] screws are present in the right humeral head IMPRESSION: Nondisplaced left 6th and 7th rib fractures better seen on the rib detail images Elevated right hemidiaphragm with right basilar atelectasis. Dictated by: Jesus Ying MD 02/28/2021 17:37 Jesus Ying MD in [place] 02/28/2021 17:37
--- NOTE | 2021-02-28 16:05 | HMH.EDUTC ---
[facility] [place] Clinical Impression: Left rib fracture Qualifiers: Encounter type: initial encounter Rib fracture type: single rib Fracture type: closed Qualified Code(s): S22.32XA - Fracture of one rib, left side, initial encounter for closed fracture Contusion of rib on left side Qualifiers: Encounter type: initial encounter Qualified Code(s): S20.212A - Contusion of left front wall of thorax, initial encounter Disposition: Home, Self-Care Condition on Discharge: Good Instructions: DI for Rib Fracture, DI for Rib Contusion Additional Instructions: Use the incentive spirometer as directed. Usually people do it 10 times every hour while they are awake for the next 2 weeks. Take the ibuprofen for pain. Follow up with your primary care doctor. GO TO THE ER FOR ANY WORSENING SYMPTOMS OR CONCERNS, ESPECIALLY ANY TROUBLE BREATHING Referrals: Darrell Cotton MD [Primary Care Provider] - Time of Disposition: 17:02 Medical Decision Making - Medical Records Medical records reviewed: No: I reviewed the patient's medical records. - All Inquiry Pt receiving controlled substance: No Vital Signs: 02/28/21 15:53 02/28/21 17:09 Temperature 98.6 F 98.6 F Temperature Source Oral Oral Pulse Rate 72 Pulse Rate [Right Brachial] 72 Respiratory Rate 14 14 Blood Pressure 130/82 Blood Pressure [Right Arm] 130/82 Blood Pressure Mean [Right Arm] 98 Blood Pressure Source Automatic Cuff Blood Pressure Source [Right Arm] Automatic Cuff Blood Pressure Position Supine Blood Pressure Position [Right Arm] Supine 02 Sat by Pulse Oximetry 95 Oxygen Delivery Method Room Air Room Air [facility] [place] - General Stated complaint: ac 02/25/21 fell-possible broken rib Time Seen by Provider: 02/28/21 16:05 Mode of Arrival: Ambulatory Source of Information: Patient HEENT Symptoms (Recalled from RN notes): No Resp Symptoms (Recalled from RN notes): No Skin Symptoms (Recalled from RN notes): No MS Symptoms (Recalled from RN notes): Yes Functional Status (Recalled from RN notes): na - History of Present Illness Provider Complaint: He states that 3 days ago he was walking in his basement when he stepped on a toy car and fell. He came down on his left lower ribs. He has had left rib pain that is worse with deep breathing and coughing. - Related Data Home Medications Medication Instructions Recorded Confirmed Atorvastatin Calcium [Lipitor 20mg 20 mg PO HS 12/23/19 02/28/21 Tab] lisinopriL [Lisinopril 40mg Tablet] 40 mg PO DAILY 12/23/19 02/28/21 Aspirin [Aspirin 81mg EC Tab] 81 mg PO DAILY 12/24/19 02/28/21 Allergies Allergy/AdvReac Type Severity Reaction Status Date / Time No Known Allergies Allergy Verified 12/23/19 19:35 - Worker's Comp Is this a Worker's Comp case?: No Is this an [facility] Worker's Comp?: No Is this a [facility] Worker's Comp?: No [facility] History - Hepatitis A Screen Drug use history?: No High risk sexual behaviors?: No History of sexually transmitted infection?: No Currently employed?: No Childcare worker?: No Do you have indoor plumbing?: Yes Do you have electricity?: Yes Attestation statement:: This patient has been screened for Hepatitis A risk factors. I have reviewed the patient's past medical history: Yes Medical History: Reports:: Hyperlipidemia, Hypertension Denies:: Cancer, Diabetes Mellitus Type 1, Diabetes Mellitus Type 2, MRSA Other Surgeries: Yes: EGD Amputation: No Fractures: No - Social History Smoking Status: Former smoker Tobacco Type: cigarettes # Packs/Day (cigarettes): 2 Alcohol Intake: never Occupational Status: retired Family Hx:: Diabetes, Heart Attack, Hyperlipidemia, Hypertension, Stroke, Tuberculosis ROS Obtained: Yes All systems reviewed & no additional complaints - Constitutional Constitutional: Denies chills - Cardiovascular Cardiovascular: Reports chest pain at rest, Denies diaphoresis Physical Exam - General General appearanc
--- NOTE | 2021-02-28 16:24 | XR_ITS ---
PROCEDURE: XR RIBS LT 2V CLINICAL INDICATION: fall, chest pain Left lower anterior rib pain COMPARISON: No exams were available for comparison FINDINGS: There is a nondisplaced fracture involving the anterior aspect of the left 6th and 7th ribs. No evidence of pneumothorax. No lytic or blastic change. IMPRESSION: Nondisplaced left 6th and 7th rib fractures Dictated by: Jesus Ying MD 02/28/2021 17:34 Jesus Ying MD in [place] 02/28/2021 17:34
[2021-02-28 17:09] VITALS: BP 130/82; PULSE 72; RESP 14; TEMP 37; O2SAT 95
== END 2021-02-28 17:05 | disposition home or self-care (01) ==
PROVIDERS: Emergency Provider Nurse Practitioner Family; PCP Family Medicine
DX: S22.32XA Fracture of one rib, left side, initial encounter for closed fracture (principal); S20.212A Contusion of left front wall of thorax, initial encounter; W01.0XXA Fall on same level from slipping, tripping and stumbling without subsequent striking against object, initial encounter; Y92.018 Other place in single-family (private) house as the place of occurrence of the external cause; I10 Essential (primary) hypertension; E78.5 Hyperlipidemia, unspecified
CPT/HCPCS: G0463; 71046; 71100; 99202

== ENCOUNTER → 2021-09-23 15:16 | Outpatient (POV) | payer MEDICARE, OTHER, SELFPAY | PROVIDERS: Visit Provider Dermatology | DX: Z00.00 Encounter for general adult medical examination without abnormal findings (principal) ==

== ENCOUNTER 2021-10-02 09:09 | Emergency (ER) | payer MEDICARE, OTHER, SELFPAY ==
[2021-10-02 09:41] VITALS: BP 186/86; PULSE 69; RESP 14; TEMP 36.9; O2SAT 97; BMI 33.2
--- NOTE | 2021-10-02 10:13 | HMH.EDUTC ---
[facility] [place] Clinical Impression: Sinusitis Qualifiers: Sinusitis location: unspecified location Chronicity: acute Recurrence: non-recurrent Qualified Code(s): J01.90 - Acute sinusitis, unspecified Disposition: Home, Self-Care Condition on Discharge: Good Instructions: Sinusitis, DI for Sinusitis Additional Instructions: Drink plenty of fluids. Take tylenol or ibuprofen for pain or fever. Take the medications as directed. Follow up with your regular doctor. GO TO THE ER FOR ANY WORSENING SYMPTOMS Don't start the oral steroids until tomorrow, since you had the shot here today. Prescriptions: Promethazine/Dextromethorphan [Promethazine-Dm Syrup] 5 ml PO Q6HP PRN #240 ml PRN Reason: Cough Transmission Status: Received by [facility] Benzonatate [Benzonatate 100mg cap] 100 mg PO TIDP PRN #30 cap PRN Reason: Cough Transmission Status: Received by [facility] methylPREDNISolone [Medrol] 4 mg PO DIRECTED 6 Days #21 packet Transmission Status: Received by [facility] guaiFENesin [Mucinex 600mg tablet] 1 - 2 tab PO BIDP PRN #30 tab PRN Reason: Congestion Transmission Status: Received by [facility] Azithromycin [Z-Moises 250mg Tab*] 250 mg PO UD DOSE PK #6 tab Transmission Status: Received by [facility] Referrals: Darrell Cotton MD [Primary Care Provider] - Time of Disposition: 10:54 Medical Decision Making - Medical Records Medical records reviewed: No: I reviewed the patient's medical records. - All Inquiry Pt receiving controlled substance: No Vital Signs: 10/02/21 09:41 10/02/21 10:50 Temperature 98.4 F 98.2 F Temperature Source Oral Pulse Rate 72 Pulse Rate [Left] 69 Respiratory Rate 14 16 Blood Pressure 180/87 H Blood Pressure [Right Arm] 186/86 H Blood Pressure Mean [Right Arm] 119 02 Sat by Pulse Oximetry 97 - Lab Data Lab Results 10/02/21 10:55: Strep Scn Rapid Clinic Negative Orders (Tests/Meds): ED MEDICATIONS Discontinued Medications Generic Name Dose Route Start Last Admin Trade Name Freq PRN Reason Stop Dose Admin Ceftriaxone Sodium 1 gm 10/02/21 10:33 10/02/21 10:42 Ceftriaxone 1gm Vial IM 10/02/21 10:34 1 gm ONCE ONE Administration Lidocaine HCl 0 ml 10/02/21 10:33 10/02/21 10:42 Lidocaine 1% 5ml Pf Vial IM 10/02/21 10:34 2.5 ml ONCE ONE Administration Methylprednisolone Sodium Succinate 125 mg 10/02/21 10:33 10/02/21 10:42 Methylprednisolone Sod Succ 125mg Vial IM 10/02/21 10:34 125 mg ONCE ONE Administration ORDERS Category Date Time Status Strep Screen Confirmation Stat Micro 10/02/21 10:55 Received [facility] [place] - General Stated complaint: sore throat, cough, congestion Time Seen by Provider: 10/02/21 10:13 Mode of Arrival: Ambulatory Source of Information: Patient Limitations: No Limitations Description of Symptoms (Recalled from Triage Doc. by RN): pt states he has a sinus infection. pt c/o yellow nasal drainage and a cough. HEENT Symptoms (Recalled from RN notes): Yes (yellow nasal drainage) Resp Symptoms (Recalled from RN notes): Yes (cough) Skin Symptoms (Recalled from RN notes): No MS Symptoms (Recalled from RN notes): No Functional Status (Recalled from RN notes): na - History of Present Illness Provider Complaint: He c/o sinus and chest congestion for the past 2 days. He denies fever and chills. He states that he is having greenish sputum and cough. He is also having sinus congestion. He has been fully vaccinated against covid-19. - Related Data Home Medications Medication Instructions Recorded Confirmed Atorvastatin Calcium [Lipitor 20mg 20 mg PO HS 12/23/19 02/28/21 Tab] lisinopriL [Lisinopril 40mg Tablet] 40 mg PO DAILY 12/23/19 02/28/21 Aspirin [Aspirin 81mg EC Tab] 81 mg PO DAILY 12/24/19 02/28/21 Previous Rx's Medication Instructions Recorded Azithromycin [Z-Moises 250mg Tab*] 250 mg PO UD DOSE PK
[2021-10-02 10:50] VITALS: BP 180/87; PULSE 72; RESP 16; TEMP 36.8
[2021-10-02 11:05] LABS: UTC Strep Screen (Rapid) Negative (Negative)
== END 2021-10-02 11:13 | disposition home or self-care (01) ==
PROVIDERS: Emergency Provider Nurse Practitioner Family; PCP Family Medicine
DX: J01.90 Acute sinusitis, unspecified (principal); Z20.822 Contact with and (suspected) exposure to COVID-19; Z87.891 Personal history of nicotine dependence
CPT/HCPCS: G0463; 87880; 96372; 99202; C9803; U0003; U0005

== ENCOUNTER → 2021-12-08 08:03 | Outpatient (CLI) | payer MEDICARE, OTHER, SELFPAY ==
--- NOTE | 2021-12-08 08:07 | US_ITS ---
FINAL REPORT CLINICAL HISTORY: SCREENING FOR AAA FINDINGS: Aorta measures up to 1.6 cm in diameter. IMPRESSION: Aorta within normal limits. Reviewed, Interpreted and Dictated by Darius Santana III, MD Transcribed by Delia Kiran Authenticated by Darius Santana III, MD on 12/08/2021 09:54:[address] [facility]
== END ==
PROVIDERS: PCP Internal Medicine Adolescent Medicine; Visit Provider Internal Medicine Adolescent Medicine
DX: Z13.6 Encounter for screening for cardiovascular disorders (principal)
CPT/HCPCS: 76770

== ENCOUNTER → 2022-02-23 07:44 | Outpatient (CLI) | payer MEDICARE, OTHER, SELFPAY ==
--- NOTE | 2022-02-23 07:47 | CA_ITS ---
APPROVED REPORT EXAM: Comprehensive 2D, Doppler, and color-flow Echocardiogram Alteration Tailor Apprentice: Anny Dickey CRT Ht: 6 ft 0 in Wt: 222lbs BSA: 2.23 BP: 180/84 mmHg Indications: Murmur, Hyperlipidemia, Hypertension/HDD, smoker 2D Dimensions LVOT 1.77 cm (M/F) 1.5-2.5 LA Volume 24.00 mL LA Volume Index 10.80 mL/m2 (M/F) 16-34 M-Mode Dimensions RVDd 3.27 cm (0.9-2.6) LA Diam 3.41 cm (1.9-4.0) LVDd 4.83 cm (3.5-5.7) Ao Diam 4.37 cm (2.0-3.7) LVDs 2.28 cm (3.5-5.7) IVSd 1.98 cm (0.6-1.1) PWd 1.06 cm (0.6-1.1) EF (Teich) 83.80% FS 52.80% EDV (Teich) 109.10 mL TAPSE 1.92 (<1.7) ESV (Teich) 17.70 mL LV Diastology E Decel Time 253.00 (160-240 msec) E/A Ratio 0.82 MED E' 5.60 (< 7 cm/sec) MED A' 8.00 cm/s E'/MED E' Ratio 13.64 (>14) LAT E' 5.40 (<10 cm/sec) LAT A' 10.60 cm/s E/LAT E' Ratio 14.15 (>14) Aortic Valve LVOT Max 147.00 (70-110 cm/s) LVOT VTI 31.63 cm AoV Peak Earl. 183.00 (50-130 cm/s) AI PHT 652.00 ms AO Peak GR. 13.50 mmHg AO Mean GR. 7.50 (<5 mmHg) AO VTI 35.91 (18-25 cm) [place] (VTI) 2.17 (2.5-4.5 cm2) Mitral Valve MV E Max Earl. 76.00 (40-130 cm/s) MV A Velocity 94.00 (40-130 cm/s) E/A Ratio 0.82 MV Decel. Time 253.00 (160-240 ms) MV PHT 74.00 ms Pulmonary Valve PV Peak Velocity 86.00 (50-150 cm/s) Tricuspid Valve TR P. Velocity 226.00 cm/s RAP Estimate 10.00 mmHg RVSP 30.40 mmHg Left Ventricle Technically very difficult study because of the patient fact in poor acoustic windows. Left atrium is mildly enlarged, left ventricle is normal size, mild concentric left ventricular hypertrophy, estimated ejection fraction 55% with no regional wall motion abnormality, grade 1 diastolic dysfunction seen without tissue Doppler evidence of raise left atrial pressure. Right Ventricle Right atrium and right ventricular mildly enlarged with normal contractility. Aortic Valve Aortic valve is thickened and calcified without aortic stenosis, there is trace aortic insufficiency. Mitral Valve Mitral valve grossly normal, there is trace mitral regurgitation. Tricuspid Valve Tricuspid grossly normal, there is trace tricuspid regurgitation, tricuspid regurgitation jet velocity is inadequate for calculation of the right ventricular systolic pressure. Pulmonic Valve Pulmonic valve is poorly visualized. Great Vessels Aortic root is normal size. Inferior vena cava is poorly visualized. Pericardium No significant pericardial effusion noted. Conclusion 1. Mild biatrial enlargement, normal left ventricular size, mild concentric left ventricular hypertrophy, estimated ejection fraction 55% with no regional wall motion abnormality, grade 1 diastolic dysfunction seen without tissue Doppler evidence of any central depression. 2. Mildly enlarged right ventricle with normal contractility. 3. Thickened and calcified aortic valve without aortic stenosis, there is trace aortic insufficiency. 4. Trace mitral and tricuspid regurgitation. 5. No significant pericardial fluid noted. 6. Inferior vena cava is poorly visualized. Electronically signed by : Carmine Cox MD 02/23/2022 21:10:42
== END ==
PROVIDERS: PCP Internal Medicine Adolescent Medicine; Visit Provider Internal Medicine Adolescent Medicine
DX: R01.1 Cardiac murmur, unspecified (principal)
CPT/HCPCS: 93306

== ENCOUNTER → 2022-03-17 08:34 | Outpatient (POV) | payer MEDICARE, OTHER, SELFPAY | PROVIDERS: Visit Provider Dermatology | DX: Z00.00 Encounter for general adult medical examination without abnormal findings (principal) ==

== ENCOUNTER 2022-05-19 10:36 | Emergency (ER) | payer MEDICARE, OTHER, SELFPAY ==
[2022-05-19] VITALS (13 sets, daily range): BP systolic 109–154; BP diastolic 68–97; PULSE 61–85; RESP 15–24; TEMP 36.5–36.7; O2SAT 94–99; BMI 33.2
--- NOTE | 2022-05-19 10:51 | XR_ITS ---
FINAL REPORT CLINICAL HISTORY: fall 14 ft from ladder, severe shoulder pain FINDINGS: LEFT SHOULDER Two views demonstrate anterior dislocation of the humerus at the glenohumeral joint. There is no acute fracture. There is mild degenerative change of the acromioclavicular joint. No soft tissue abnormality is seen. IMPRESSION: Anterior dislocation of the humerus at the glenohumeral joint. Reviewed, Interpreted and Dictated by Darius Santana III, MD Transcribed by Shi Pro Authenticated and [facility]
--- NOTE | 2022-05-19 10:51 | XR_ITS ---
FINAL REPORT CLINICAL HISTORY: fall 14 ft from ladder, laceration to anterior part of lower leg FINDINGS: LEFT TIBIA FIBULA 2 views were obtained. There is no acute fracture or dislocation. The joint spaces are intact. There is small amount subcutaneous air anteriorly. No foreign body is identified. IMPRESSION: No acute bony abnormality. No foreign body is identified. Reviewed, Interpreted and Dictated by Darius Santana III, MD Transcribed by Shi Pro Authenticated and [facility]
--- NOTE | 2022-05-19 10:52 | CT_ITS ---
FINAL REPORT CLINICAL HISTORY: fall from ladder, 14 ft FINDINGS: Axial CT images of the chest were obtained with contrast. Coronal reformatted images were also obtained. This study was performed with techniques to keep radiation doses as low as reasonably achievable, (ALARA). Individualized dose reduction techniques using automated exposure control or adjustment of mA and/or KV according to the patient's size were employed. There is no evidence of mediastinal or hilar mass or adenopathy. No axillary mass or adenopathy is identified. There is moderate to severe coronary artery calcification. On lung window images, no pulmonary mass or dominant pulmonary nodule is identified. There is mild atelectasis. There is no pneumothorax. No localized pulmonary inflammatory process is identified. On the bone window images, there is a fracture of the left anterior-inferior glenoid. There is also a nondisplaced fracture of the left lateral 7th rib. IMPRESSION: Fracture of the left anterior-inferior glenoid. Left lateral 7th rib fracture. Reviewed, Interpreted and Dictated by Darius Santana III, MD Transcribed by Shi Pro Authenticated and [facility]
--- NOTE | 2022-05-19 10:52 | CT_ITS ---
FINAL REPORT CLINICAL HISTORY: fall from ladder, 14 ft FINDINGS: CT OF THE ABDOMEN AND PELVIS WITH CONTRAST Axial CT images of the abdomen and pelvis were obtained after the administration of IV contrast. Coronal reformatted images were also obtained and reviewed.This study was performed with techniques to keep radiation doses as low as reasonably achievable (ALARA). Individualized dose reduction techniques using automated exposure control or adjustment of mA and/or kV according to the patient's size were employed. Abdomen: The heart is normal in size. The liver has an unremarkable appearance, without evidence of mass or biliary ductal dilatation. The spleen is unremarkable. No adrenal mass is present. The pancreas has an unremarkable appearance. There is several bilateral less than 3 mm nonobstructing renal stones. There is a probable small cyst in the right kidney. The aorta is normal in caliber. There is no free fluid or adenopathy. No abnormal fluid collection is seen. Pelvis: The appendix normal The urinary bladder is unremarkable. No inflammatory process is seen. There is no evidence of mass or adenopathy. There are multiple sigmoid diverticula without evidence of diverticulitis. There is no evidence of bowel obstruction. IMPRESSION: No evidence of organ injury or hemoperitoneum. Reviewed, Interpreted and Dictated by Darius Santana III, MD Transcribed by Shi Pro Authenticated and [facility]
--- NOTE | 2022-05-19 10:53 | CT_ITS ---
FINAL REPORT CLINICAL HISTORY: fall from ladder, 14 feet FINDINGS: Axial images of the head were obtained without contrast. Coronal reformatted images were also obtained.This study was performed with techniques to keep radiation doses as low as reasonably achievable (ALARA). Individualized dose reduction techniques using automated exposure control or adjustment of mA and/or kV according to the patient''s size were employed. There is no evidence of intracranial hemorrhage or mass. The ventricular size is within normal limits. There is no evidence of shift of the midline structures. No abnormal extra axial fluid collection is identified. No skull abnormality is seen on the bone window images. IMPRESSION: No acute intracranial abnormality. Reviewed, Interpreted and Dictated by Darius Santana III, MD Transcribed by Melanie Manrique Authenticated and [facility]
--- NOTE | 2022-05-19 10:54 | CT_ITS ---
FINAL REPORT TECHNIQUE: Axial CT images of the face were obtained without contrast. Coronal reformatted images were also obtained. This study was performed with techniques to keep radiation doses as low as reasonably achievable, (ALARA). Individualized dose reduction techniques using automated exposure control or adjustment of mA and/or kV according to the patient''s size were employed. CLINICAL HISTORY: fall from ladder, 14 feet FINDINGS: There is a left orbital lamina papyracea fracture, favor acute. There is opacification of multiple ethmoid air cells, left greater than right. The globes are intact. The orbital floors are intact. There is mild mucosal thickening of the maxillary sinuses. IMPRESSION: Fracture of the left lamina papyracea, favor acute. Reviewed, Interpreted and Dictated by Darius Santana III, MD Transcribed by Melanie Manrique Authenticated and [facility]
--- NOTE | 2022-05-19 10:54 | CT_ITS ---
FINAL REPORT CLINICAL HISTORY: fall from ladder, 14 ft FINDINGS: Axial CT images of the cervical spine were obtained without contrast. Sagittal and coronal reformatted images were also obtained. This study was performed with techniques to keep radiation doses as low as reasonably achievable (ALARA). Individualized dose reduction techniques using automated exposure control or adjustment of mA and/or kV according to the patient's size were employed. There is no evidence of fracture or dislocation. The bony alignment is normal. There is mild degenerative change. There is no evidence of canal stenosis. No paraspinous soft tissue abnormality is seen. Limited images of the upper thorax are unremarkable. IMPRESSION: No fracture or acute bony abnormality identified. Reviewed, Interpreted and Dictated by Darius Santana III, MD Transcribed by Shi Pro Authenticated and [facility]
--- NOTE | 2022-05-19 10:55 | XR_ITS ---
FINAL REPORT CLINICAL HISTORY: fall 14 ft from ladder FINDINGS: A single portable view of the chest was obtained. The heart size and pulmonary vascularity are within normal limits. The mediastinum is within normal limits. There is elevation of the right hemidiaphragm. There is right lung base atelectasis. There is no pneumothorax. There is anterior dislocation of the left humerus at the glenohumeral joint. IMPRESSION: Elevation of the right hemidiaphragm. No pneumothorax. Anterior dislocation of the left humerus at the glenohumeral joint. Reviewed, Interpreted and Dictated by Darius Santana III, MD Transcribed by Shi Pro Authenticated and [facility]
--- NOTE | 2022-05-19 10:55 | XR_ITS ---
FINAL REPORT CLINICAL HISTORY: fall 14 ft from ladder FINDINGS: SINGLE VIEW PELVIS: A single view of the pelvis was obtained. There is no acute fracture or dislocation. There is mild degenerative change in the lower lumbar spine. Soft tissues are unremarkable. IMPRESSION: No acute bony abnormality. Reviewed, Interpreted and Dictated by Darius Santana III, MD Transcribed by Shi Pro Authenticated and . [facility]
--- NOTE | 2022-05-19 10:57 | PC.NURSE ---
MD AT BEDSIDE, UPDATING FAMILY ON POC
--- NOTE | 2022-05-19 10:59 | PC.NURSE ---
XR AT BEDSIDE
--- NOTE | 2022-05-19 10:59 | HMH.EDGENADL ---
ED Disposition Clinical Impression: Fracture of glenoid process of left scapula, Abrasion, left lower leg, initial encounter Anterior dislocation of left shoulder Qualifiers: Encounter type: initial encounter Qualified Code(s): S43.015A - Anterior dislocation of left humerus, initial encounter Thigh abrasion Qualifiers: Encounter type: initial encounter Laterality: right Qualified Code(s): S70.311A - Abrasion, right thigh, initial encounter Fall on/from ladder Qualifiers: Encounter type: initial encounter Qualified Code(s): W11.XXXA - Fall on and from ladder, initial encounter Medial orbital wall fracture Qualifiers: Encounter type: initial encounter Fracture type: closed Laterality: left Qualified Code(s): S02.832A - Fracture of medial orbital wall, left side, initial encounter for closed fracture Disposition: Home, Self-Care Condition on Discharge: Fair Instructions: DI for Moderate Sedation Additional Instructions: Additional instructions for FRACTURED (BROKEN) BONE: See Dr. Hanna as soon as possible for further evaluation. Shoulder immobilizer until follow-up. Ice 20 minutes 4-5 times a day to left shoulder. Avoid raising left arm above your head. Return to an emergency department immediately if you have uncontrollable pain, loss of feeling or inability to move your injured extremity. Additional instructions for FACIAL FRACTURE (orbit): Augmentin as prescribed. Schedule an appointment to be seen by [facility] for fracture of left orbit: [phone] Additional instructions for RIB INJURIES: See your physician as soon as possible for further evaluation. Hold a pillow against your injured ribs to help with pain when coughing or sneezing. Sleep with several pillows to help support you in the most comfortable position. Take deep breaths frequently. Use incentive spirometer 4-5 times a day. Return immediately if shortness of breath, intolerable pain, coughing of blood, abdominal pain or vomiting. Percocet as needed for pain. Additional instructions for CONTROLLED SUBSTANCES: You have been prescribed a medication that is a controlled substance. Controlled substances include pain medications known as opiates and sedative nerve medications known as benzodiazepines. Tramadol, fioricet, and gabapentin are also controlled substances. Some common opiates include: Codeine (such as Tylenol #3) Hydrocodone (Vicodin, Lortab, Lorcet, [place]) Oxycodone (Percocet, Percodan, Oxycodone, Oxy IR) Some common benzodiazepines include: Diazepam (Valium) Lorazepam (Ativan) Alprazolam (Xanax) Clonazepam (Klonopin) Oxazepam (Serax) All of these controlled substances are highly addictive and frequently abused. Misuse can and frequently does lead to addiction as well as overdose and . Medication should be stored in a locked cabinet or other secure storage unit. Do not store the medication in a motor vehicle. Short term supplies, 3 days or less, are prescribed because of the highly addictive nature of the medication. Any of the controlled substance medication NOT taken should be disposed of properly and NOT SAVED. The recommended method of disposing of unused medications is: Place the medicines in a sealable plastic bag. If the medicine is a solid, crush it or add water to dissolve it. Add something undesirable (cat litter, coffee grounds, etc.) Dispose of sealed bag in household trash Do not flush or pour unused medicines down a sink or drain. Controlled substances should not be shared, given away or sold. Because of the addictive nature and frequent abuse, these medications are sometimes stolen. These medications should be kept in a safe place where they cannot be stolen. Do not keep them in your car or purse. Lost or stolen prescriptions for controlled substances WILL NOT BE REFILLED in this emergency department, regardless of whether a police report was f
[2022-05-19 11:05] LABS: Basophils # 0.2 K/mm3 (0-0.2); Basophils % 2.3 % (0.1-2.0); Chloride 107 mmol/L (98-107); Eosinophils # 0.3 K/mm3 (0.0-0.4); Eosinophils % 3.2 % (0.1-12.0); Hematocrit 49.6 % (42.0-52.0); Lymphocytes # 3.1 K/mm3 (0.7-4.5); Lymphocytes % 35.7 % (10-50); Mean Corpuscular HGB Conc 30.2 g/dL (31.8-35.4); Mean Corpuscular Hemoglobin 31.4 pg (27.0-31.2); Mean Corpuscular Volume 104.2 fl (80-94); Mean Platelet Volume 8.7 fl (7.4-10.4); Monocytes # 0.4 K/mm3 (0.1-1.0); Monocytes % 4.7 % (1.7-9.3); Neutrophils # 4.7 K/mm3 (1.8-7.8); Neutrophils % 54.1 % (37.0-80.0); Platelet Count 291 K/mm3 (142-424); Red Blood Count 4.76 M/mm3 (4.60-6.20); Red Cell Distribution Width 12.8 % (11.5-17.5); White Blood Count 8.7 K/mm3 (4.8-10.8)
[2022-05-19 11:06] LABS: Potassium 3.9 mmoL/L (3.5-5.1); Sodium 139 mmol/L (136-145)
[2022-05-19 11:08] LABS: Alanine Aminotransferase 49 U/L (12-78); Alkaline Phosphatase 70 U/L (38-126); Anion Gap 11.9 mEq/L (5-15); Aspartate Amino Transferase 58 U/L (17-59); Bilirubin,Total 0.7 mg/dl (0.2-1.3); Blood Urea Nitrogen 22 mg/dl (9-20); Carbon Dioxide 24 mmol/L (22.0-30.0); Creatinine Clearance Estimated 113 mL/min (50-200); Estimated Glomerular Filt Rate 75 ml/min (>60); GFR (African American) 90 ML/MIN (>60)
[2022-05-19 11:09] LABS: Albumin Level 4.4 g/dl (3.5-5.0); Albumin/Globulin Ratio 1.4 (1.1-1.8); Calcium 9.6 mg/dl (8.4-10.2); Globulin 3.1 g/dL (1.3-3.2); Glucose 137 mg/dl (74-100); Total Protein,Serum 7.5 g/dl (6.3-8.2)
--- NOTE | 2022-05-19 11:23 | PC.NURSE ---
notified radiology of post reduction xray order, spoke with eleno
--- NOTE | 2022-05-19 11:24 | XR_ITS ---
FINAL REPORT CLINICAL HISTORY: post reduction COMPARISON: Earlier the same day FINDINGS: LEFT SHOULDER A single view demonstrates interval reduction of the glenohumeral dislocation. No acute fracture is identified. The joint spaces appear normal. The visualized bony structures are well aligned. No soft tissue abnormality is seen. IMPRESSION: Interval reduction of glenohumeral dislocation. Reviewed, Interpreted and Dictated by Darius Santana III, MD Transcribed by Shi Pro Authenticated and [facility]
--- NOTE | 2022-05-19 11:40 | PC.NURSE ---
PT AWAKE TALKING WITH FAMILY ALERT AND ORIENTED X4
--- NOTE | 2022-05-19 11:41 | PC.NURSE ---
PT TO CT PER STRETCHER
--- NOTE | 2022-05-19 11:42 | PC.NURSE ---
PT TO CT
--- NOTE | 2022-05-19 13:04 | PC.NURSE ---
MD AT BEDSIDE SPEAKING WITH PT AND FAMILY BAOUT POC
--- NOTE | 2022-05-19 13:13 | PC.NURSE ---
ARMAND VILLEGAS speaking with Dr. Hanna
--- NOTE | 2022-05-19 13:16 | CT_ITS ---
FINAL REPORT CLINICAL HISTORY: fx glenoid, lt shoulder dislocation earlier, pt fell from ladder FINDINGS: Technique: Axial images through the were performed by computed tomography. Sagittal and coronal reconstruction images were performed. This study was performed with techniques to keep radiation doses as low as reasonably achievable (ALARA). Individualized dose reduction techniques using automated exposure control or adjustment of mA and/or kV according to the patient's size were employed. There is a comminuted fracture of the anterior-inferior glenoid with bony fragments displaced inferiorly and medially. There is a nondisplaced fracture of the greater tuberosity of the humerus. No dislocation identified. There is mild degenerative change of the acromioclavicular joint. No soft tissue abnormality. IMPRESSION: Comminuted fracture of the anterior-inferior glenoid. Nondisplaced fracture of the greater tuberosity of the humerus. No dislocation identified. Reviewed, Interpreted and Dictated by Darius Santana III, MD Transcribed by Luna Nagy Authenticated and [facility]
--- NOTE | 2022-05-19 13:20 | PC.NURSE ---
PT AND FAMILY UPDATED ON PLAN OF CARE
--- NOTE | 2022-05-19 13:50 | PC.NURSE ---
RN AT BEDSIDE, PT WITHOUT NEEDS AT THIS TIME. AT BEDSIDE
--- NOTE | 2022-05-19 14:50 | PC.NURSE ---
ED MD AT BEDSIDE TO UPDATE PT AND FAMILY
--- NOTE | 2022-05-19 15:23 | PC.NURSE ---
ARMAND VILLEGAS speaking with Dr. Diop
--- NOTE | 2022-05-19 15:38 | PC.NURSE ---
PT TAKEN TO CAR PER WHEELCHAIR
== END 2022-05-19 15:33 | disposition home or self-care (01) ==
PROVIDERS: Emergency Provider Emergency Medicine; PCP Internal Medicine Adolescent Medicine
DX: S70.311A Abrasion, right thigh, initial encounter (principal); S02.85XA Fracture of orbit, unspecified, initial encounter for closed fracture; W11.XXXA Fall on and from ladder, initial encounter; Y93.E9 Activity, other interior property and clothing maintenance; S42.142A Displaced fracture of glenoid cavity of scapula, left shoulder, initial encounter for closed fracture; S80.812A Abrasion, left lower leg, initial encounter; E78.5 Hyperlipidemia, unspecified; I10 Essential (primary) hypertension; Z87.891 Personal history of nicotine dependence; Z23 Encounter for immunization
CPT/HCPCS: 23650; 70450; 70486; 71045; 71260; 72125; 72170; 73030; 73200; 73590; 74177; 80053; 85025; 90471; 90715; 96365; 96375; 96376; 99152; 99285; J2405; Q9967

== ENCOUNTER → 2022-05-22 12:32 | Outpatient (CLI) | payer MEDICARE, OTHER, SELFPAY ==
--- NOTE | 2022-05-22 12:32 | MR_ITS ---
FINAL REPORT CLINICAL HISTORY: lt shoulder dislocation. Patient fell off ladder 3 days ago and dislocated shoulder. Weakness and pain in shoulder. Limited ROM. Patient was unable to fully supinate hand. Patient was in pain, sent over best images. FINDINGS: Multiplanar MR imaging of the left shoulder was performed without contrast. There is a high-grade full-thickness versus complete tear of the distal supraspinatus tendon. Tendon is retracted to the mid humeral head. There is a complete tear of the infraspinatus tendon with tendon retracted to the mid humeral head. There is moderate AC joint arthrosis. A moderate amount of fluid is seen in the subacromial/subdeltoid bursa. There is a comminuted, impacted fracture of the posterior humeral head consistent with Hill-Sachs. There is also a fracture of the anterior/inferior glenoid with anterior/inferior displacement of the fracture fragment. There is abnormal appearance of the inferior joint capsule, likely a tear or partial tear. Adjacent soft tissue edema or hemorrhage is identified. The long head of the biceps tendon is intact. Moderate glenohumeral joint effusion is seen. The musculature is intact. There is no evidence of soft tissue mass. IMPRESSION: High-grade full-thickness versus complete tear of the supraspinatus tendon. Complete tear of the infraspinatus tendon. Comminuted, impacted fracture of the posterior humeral head. Fracture of the anterior/inferior glenoid. Tear or partial tear of the inferior joint capsule. Reviewed, Interpreted and Dictated by Darius Santana III, MD Transcribed by Melanie Manrique Authenticated and [facility]
== END ==
PROVIDERS: PCP Internal Medicine Adolescent Medicine; Visit Provider Orthopaedic Surgery
DX: S42.142A Displaced fracture of glenoid cavity of scapula, left shoulder, initial encounter for closed fracture (principal)
CPT/HCPCS: 73221

== ENCOUNTER 2022-12-17 09:00 | Outpatient (RCR) | payer MEDICARE, OTHER, SELFPAY | END 2022-12-17 09:05 | disposition home or self-care (01) | LOC: PT 09:00 | PROVIDERS: PCP Internal Medicine Adolescent Medicine; Visit Provider Orthopaedic Surgery | DX: S46.012D Strain of muscle(s) and tendon(s) of the rotator cuff of left shoulder, subsequent encounter (principal) | CPT/HCPCS: 97010; 97014; 97110; 97112; 97140; 97163; 97164; 97530; G0283 ==